=== PATIENT | male | born 1950 | race Asian ===

== ENCOUNTER 2017-05-13 16:12 | Emergency (ER) | payer SELFPAY ==
[~2017-05-13] VITALS: Ht 177.8 cm; Wt 68.0 kg
[2017-05-13] MEDS ORDERED: AUGMENTIN 875-1 EAC1 ORAL (16:35)
--- NOTE | 2017-05-13 16:35 | Emergency Room Report ---
History of Present Illness General Chief Complaint: Animal Bite Source: Patient Present Illness HPI 66 YO male presents to ED c/O squirrel bite to right thumb x 1 hour . pt . was feeding squirrel and it accidentally bit is finger. pt. does not know when his last tetanus was. denies erythema, fevers, chills, SOB, wheezing, or rashes. denies CP. Allergies: Coded Allergies: No Known Allergies (Unverified , 05/13/17) Patient History Past Medical History: see triage record Past Surgical History: none Pertinent Family History: none Reviewed Nursing Documentation: PMH: Agreed, PSxH: Agreed Nursing Documentation-PMH Past Medical History: No Stated History Review of Systems All Other Systems: negative except mentioned in HPI Physical Exam Vital Signs Date Time Temp Pulse Resp B/P Pulse Ox O2 Delivery O2 Flow Rate FiO2 05/13/17 16:20 98.1 54 14 121/75 95 Room Air Sp02 EP Interpretation: reviewed, normal General Appearance: no apparent distress, alert, GCS 15, non-toxic Head: normocephalic, atraumatic Eyes: bilateral eye PERRL, bilateral eye normal inspection ENT: hearing grossly normal, normal pharynx, no angioedema, normal voice Neck: full range of motion, supple/symm/no masses Respiratory: lungs clear, normal breath sounds, speaking full sentences Cardiovascular #1: regular rate, rhythm, no edema, normal capillary refill Musculoskeletal: back normal, gait/station normal, normal range of motion, non- tender Neurologic: alert, oriented x3, responsive, motor strength/tone normal, sensory intact, speech normal Psychiatric: judgement/insight normal, memory normal, mood/affect normal Skin: normal color, no rash, warm/dry, well hydrated, other - two small 0.3cm puncture wounds to the right thumb, no erythema, no bleeding at this time. Lymphatic: no adenopathy Medical Decision Making PA Attestation Dr. Stone is my supervising Physician whom patient management has been discussed with. Diagnostic Impression: Primary Impression: Bite by animal ER Course 66 YO male presents to ED c/O squirrel bite to right thumb x 1 hour . pt . was feeding squirrel and it accidentally bit is finger. pt. does not know when his last tetanus was. denies erythema, fevers, chills, SOB, wheezing, or rashes. denies CP. Ddx considered but are not limited to Cellulitis, rabies, fracture, neurovascular compromise of extremity. Vital signs: are WNL, pt. is afebrile H&PE are most consistent with dog bite, mild infection. ORDERS: none required at this time, the diagnosis is clinical ED INTERVENTIONS: -Wound was copiously irrigated -Tetanus vaccination is administered. DISCHARGE: At this time pt. is stable for d/c to home. Will provide printed patient care instructions, and any necessary prescriptions. Care plan and follow up instructions have been discussed with the patient prior to discharge. * Augmentin PO Last Vital Signs Date Time Temp Pulse Resp B/P Pulse Ox O2 Delivery O2 Flow Rate FiO2 05/13/17 16:20 98.1 54 14 121/75 95 Room Air Disposition: HOME, SELF-CARE Condition: Stable Scripts Amoxicillin/Potassium Clav 875-125* (AUGMENTIN 875-125 TABLET*) 1 Each Tablet 1 TAB ORAL TWICE A DAY for 7 Days, #14 TAB Prov: Tori Harding 05/13/17 Patient Instructions: Animal Bite Additional Instructions: Take medications as directed. Follow up with a Primary Care Provider in 3-5 days, even if your symptoms have resolved. --Please review list of primary care clinics, if you do not already have a primary care provider Return sooner to ED if new symptoms occur, or current symptoms become worse. - Please note that this Emergency Department Report was dictated using [employer] rasper technology software, occasionally this can lead to erroneous entry secondary to interpretation by the dictation equipment. Tori Harding May 13, 2017 16:35
[2017-05-13 16:45] VITALS: BP 121/75
[2017-05-13] MEDS ORDERED: Tetanus/Diptheria/Pertussis Vaccine 0.5ml Syr IM ONE (16:45)
[2017-05-13 16:55] VITALS: BP 121/75
== END 2017-05-13 16:55 | disposition home or self-care (01) ==
LOC: EMR 16:30
DX: S61.031A Puncture wound without foreign body of right thumb without damage to nail, initial encounter (principal); W53.21XA Bitten by squirrel, initial encounter; Y92.89 Other specified places as the place of occurrence of the external cause; Z23 Encounter for immunization
CPT/HCPCS: 90471; 90715; 96372; 99283